=== PATIENT | male | born 1955 | race Caucasian/White ===

== ENCOUNTER → 2019-08-24 | Outpatient (CLI) | payer MEDICARE ==
[2019-08-24 11:55] VITALS: BP 110/75; PULSE 69; RESP 16
--- NOTE | 2019-08-25 13:11 | P.PAINCN ---
History of Present Illness - Reason for Consult Consult date: 08/24/19 - History of Present Illness This is a 64-year-old patient referred by Dr. Moss with a chief complaint of chronic pain in bilateral low back with radiation to bilateral buttocks, left greater than right. Patient used to follow in our clinic, last seen in October 2015, at which time he underwent lumbar radiofrequency ablation of L3, L4, L5 medial branchesbilaterally. He reports that these procedures provided him excellent long-lasting relief. Today, his pain is primarily located in the middle of his low back, he describes intermittent jolts of pain through his back, pain is rated a 6/10, described as sharp, constant, sore. Pain is better with position, heat, massage and worse with bending, activity. Patient reports that this pain is the same pain as prior to his ablation done 3 years ago. He was evaluated by a neurosurgeon, who recommended a Cage, however patient does not want to proceed with this procedure. He would like to have a repeat lumbar radiofrequency ablation, given excellent benefits from prior procedure. Patient has been taking medications from primary care physician including [place] 7.5/325 twice a day when necessary with some relief. Patient denies adverse drug effects from medications. Patient also denies new-onset weakness, bowel/bladder incontinence, or any other signs or symptoms of cauda equina syndrome. There are no signs of acute intoxication, and no indications of medication diversion or overuse. of note, he has chronic lymphoid leukemia, in remission. Patient HAS had injections previously. Patient HAS NOT had physical therapy recently. In addition to above, 13-point review of systems is also negative for chest pain, shortness of breath, changes in vision, changes in hearing, new onset weakness, abdominal pain, diarrhea, extreme fatigue, malaise, fever, skin changes, homicidal or suicidal ideation, or bowel or bladder incontinence. Past Medical History Past Medical History: Cancer, GERD/Reflux, Hypertension Additional Past Medical History / Comment(s): Back Pain, LEFT WRIST PAIN , CHRONIC LYMPHOMA LEUKEMIA History of Any Multi-Drug Resistant Organisms: None Reported Past Surgical History: Orthopedic Surgery Additional Past Surgical History / Comment(s): Lt knee ARTHROSCOPIC ; SEVERAL PAIN PROCEDURES. Past Anesthesia/Blood Transfusion Reactions: No Reported Reaction Smoking Status: Former smoker - Past Family History Mother Family Medical History: No Reported History Additional Family Medical History / Comment(s): BRAIN TUMOR - NO CANCER Medications and Allergies Home Medications Medication Instructions Recorded Confirmed Type Cyclobenzaprine [Flexeril] 10 mg PO HS 07/18/15 08/24/19 History Hydrocodone/Acetaminophen [[place] 1 tab PO BID PRN 08/02/15 08/24/19 History 7.5-325] Lisinopril-Hctz 20-25 mg 1 tab PO QAM 08/02/15 08/17/19 History [Zestoretic 20-25] Metoprolol Succinate [Toprol XL] 25 mg PO BID 08/02/15 08/17/19 History Naproxen 500 mg PO Q12HR PRN 08/02/15 08/17/19 History Omeprazole 40 mg PO AC-BRKFST 08/02/15 08/17/19 History amLODIPine [Norvasc] 5 mg PO QAM 08/02/15 08/17/19 History traZODone HCL [Desyrel] 50 mg PO HS 08/03/15 08/24/19 History Cholecalciferol [Vitamin D3] 2,000 unit PO DAILY 09/30/15 08/17/19 History Atorvastatin [Lipitor] 20 mg PO HS 08/17/19 08/17/19 History [place]-3 Acid Ethyl Esters [Lovaza] 4 gm PO DAILY 08/17/19 08/17/19 History ALPRAZolam [Xanax] 0.5 mg PO DAILY PRN 08/24/19 08/24/19 History Allopurinol [Zyloprim] 300 mg PO DAILY 08/24/19 08/24/19 History Allergies Allergy/AdvReac Type Severity Reaction Status Date / Time No Known Allergies Allergy Verified 08/17/19 14:47 Physical Exam Physical exam: Vital Signs: Blood pressure 110/75, pulse 69, saturation 96% on room air, BMI 28.7 GENERAL: Well appearing, in no acute distress PSYCH: Mood and affect is appropriate. Awake, alert, and oriented SKIN: Skin color, texture, turgor normal, no rashes or lesions HEENT: Normocephalic, atraumatic. EOM intact CV: No pedal edema RESP: Respirations are unlabored, no audible wheezing GI: Abdomen non-distended MUSCULOSKELETAL: Bilateral lower extremity strength is normal and symmetric. No atrophy or tone abnormalities are noted. Lumbar spine: Straight leg raising in the sitting position is negative for radicular pain. tenderness to palpation over the lumbar spine and paraspinous muscles bilaterally, left greater than right.Positive for pain with facet loading and back extension/rotation. pain limited flexion and extension of lumbar spine No pain to palpation over the PSIS, Yady test negative Extremities: Peripheral joint ROM is full and pain free without obvious instability or laxity in all four extremities. No edema or skin discolorations noted. Gait: Gait is normal NEUR: Bilateral lower extremity coordination and muscle stretch reflexes are physiologic and symmetric. Negative clonus. No loss of sensation is noted. Cranial nerves are grossly intact. Results Results: Imaging: MRI of the lumbar spine 08/21/2019= Multilevel lumbar degenerative disc disease and lumbar facet arthropathy, at L3-4 and L4-5 left-sided disc bulges with lateral recess and neuroforaminal narrowing on the left side. presence of renal cysts Assessment and Plan Assessment: Assessment: 1. Lumbar spondylosis without radiculopathy or myelopathy 2. lumbar degenerative disc disease 3. chronic lymphoid leukemia in remission Plan: Plan: 1. Explanation: Opioid and psychological risk scores were reviewed. Diagnoses, prognoses, and multiple treatment options including but not limited to physical therapy, interventional therapies, adjuvant medical therapies, narcotic medication therapies, and surgery were discussed with the patient and all questions were answered to the patient's satisfaction. 2. Opioid agreement: none 3. Counseling: The patient was counseled for 3 minutes on SMOKING CESSATION. he was also counseled on the importance of EXERCISE. Specifically, the patient was instructed regarding the importance of smoking cessation,and exercise in the context of both chronic pain and overall health. 4. Procedures: we will schedule lumbar radiofrequency ablation at L3, L4, L5 we will start with the left side. 5. Consultations: none today, in the future he may benefit from a physical therapy referral 6. Investigations: MRI lumbar spine reviewed 7. Medications: managed by PCP, patient was counseled on potential dose reduction of narcotics following expected pain relief from lumbar radiofrequency ablation 8. Disposition: for above-mentioned procedure PQRS Measure Charge Sheet Measure #130: Documentation of Current Meds in Medical Chart: Patient's medications documented in chart Measure #226: Tobacco Use: Screen & Cessation Intervention: Pt screened for tobacco use AND intervention given Measure #111: Pneumonia Vaccination: Pneumococcal vaccine administered or previously received Measure #47: Advance Care Plan: Advance care planning discussed & documented, pt chose/unable to give Measure #412: Opioid Treatment Agreement: No documentation of signed opioid treatment agreement Measure #317: Preventitive Care & Scrn High Bld Press & F/U: Normal blood pressure, f/u not required Measure #128: Body Mass Index (BMI) Screening & Follow-up: BMI documented within normal parameters Measure #131: Pain Assessment & Follow-up: Pain positive & plan documented, Follow-up scheduled Measure #431: Unhealthy Alcohol Use Preventative Care & Scrn: Patient not identified as an unhealthy alcohol user PQRS Narrative: Smoking Status Former smoker Pain Intensity [Back] 8 Scale Used Numeric (1 - 10) Hx Alcohol Use (MH) Yes: OCCASIONAL Home Medications: Ambulatory Orders Cyclobenzaprine [Flexeril] 10 mg PO HS 07/18/15 Hydrocodone/Acetaminophen [[place] 7.5-325] 1 tab PO BID PRN 08/02/15 Lisinopril-Hctz 20-25 mg [Zestoretic 20-25] 1 tab PO QAM 08/02/15 Metoprolol Succinate [Toprol XL] 25 mg PO BID 08/02/15 Naproxen 500 mg PO Q12HR PRN 08/02/15 Omeprazole 40 mg PO AC-BRKFST 08/02/15 amLODIPine [Norvasc] 5 mg PO QAM 08/02/15 traZODone HCL [Desyrel] 50 mg PO HS 08/03/15 Cholecalciferol [Vitamin D3] 2,000 unit PO DAILY 09/30/15 Atorvastatin [Lipitor] 20 mg PO HS 08/17/19 [place]-3 Acid Ethyl Esters [Lovaza] 4 gm PO DAILY 08/17/19 ALPRAZolam [Xanax] 0.5 mg PO DAILY PRN 08/24/19 Allopurinol [Zyloprim] 300 mg PO DAILY 08/24/19
== END | disposition home or self-care (01) ==
LOC: PNWHC3 09:53
PROVIDERS: ATTEND Anesthesiology
DX: M51.36 Other intervertebral disc degeneration, lumbar region (principal); M47.816 Spondylosis without myelopathy or radiculopathy, lumbar region; C91.Z1 Other lymphoid leukemia, in remission; I10 Essential (primary) hypertension; Z87.891 Personal history of nicotine dependence; Z79.891 Long term (current) use of opiate analgesic; Z79.1 Long term (current) use of non-steroidal anti-inflammatories (NSAID); Z79.899 Other long term (current) drug therapy
CPT/HCPCS: 99211

== ENCOUNTER 2019-08-31 07:23 | Day surgery (SDC) | payer MEDICARE ==
[2019-08-27 16:01] VITALS: BMI 28.7
[~2019-08-31 07:23] MED LIST: LACTATED RINGERS 1,000 ML IV SCH
[2019-08-31 09:44] VITALS: TEMP 97.8
[2019-08-31] MEDS ORDERED: LIDOCAINE 1% 20 ML VIAL (10MG/ML) FOR IV START INTRADERMA ONE (09:44)
--- NOTE | 2019-08-31 10:58 | P.PCN ---
Date of Procedure: 08/31/19 Procedure(s) Performed: PREOPERATIVE DIAGNOSIS: Lumbar Spondylosis POSTOPERATIVE DIAGNOSIS: Same PROCEDURES: Radiofrequency ablation of the L3, L4, L5 medial branches with fluoroscopic guidance on the left side SURGEON: Teressa Okeefe MD. ANESTHESIA: Lidocaine 1% 5 mL, Moderate sedation with intravenous Versed and fentanyl, sedation time 17 minutes EBL: Minimal Fluoroscopy was used for the procedure and images were saved in the radiology portion of the chart. PROCEDURE INDICATION: The patient with low back pain secondary to lumbar facet arthropathy who had more than 50% relief of pain with previous lumbar radiofrequency ablation PROCEDURE DESCRIPTION / TECHNIQUE: The patient was seen and identified in the preoperative area. Risks, benefits, complications, including but not limited to risk of infection ,bleeding , allergic reactions to the medications and incomplete pain relief , and alternatives were discussed with the patient, the patient agreed to proceed with the procedure and signed the consent. IV was started. The operative site was marked. Patient was taken to the OR and time out was completed. The patient was placed in the prone position on the procedure table. The lumbar area was prepped and draped in the usual sterile fashion. . Vital signs were closely monitored during the procedure .IV sedation was used during the procedure to decrease patients anxiety. Using AP and then oblique fluoroscopy, the "eye of the Tej dog" corresponding to the connection between the superior and transverse articular processes of the left L4 and L5 as well as the sacral ala were identified, marked, and localized with 1% lidocaine. Subsequently, an 18 guage 100 mm radiofrequency cannula with a 10-mm active tip was advanced guided by fluoroscopy to the identified target at each site. Needle positioning was confirmed on AP, oblique and lateral fluoroscopy. Motor testing at 2.5 Hz was done with paraspinal muscle stimulation only, and no radicular symptoms down the legs. Then 1 mL of 4% lidocaine was injected in each site. Radiofrequency thermocoagulation at 80 degrees celsius for 90 seconds was then performed. [place] were removed. Sterile dressings were applied. COMPLICATIONS: No acute complications. DISPOSITION / PLANS: The patient was placed in a supine position and transferred to the recovery area in a stable condition for observation and was discharged from the recovery room after meeting discharge criteria. Home discharge instructions given to the patient by the staff. The patient will follow up for right-sided procedure in 2 weeks.
[2019-08-31] MEDS ORDERED: IV FLUID CONTINUATION 1,000 ML IV ONE (11:03)
--- NOTE | 2019-08-31 11:08 | FL ---
EXAMINATION TYPE: FL guided pain mgmt statistic DATE OF EXAM: 08/31/2019 HISTORY: Flouroscopy time 9 seconds of fluoroscopy provided. IMPRESSION: 1. Fluoroscopy time.
[2019-08-31 11:30] VITALS: BP 104/64; PULSE 67; RESP 17
== END 2019-08-31 11:45 | disposition home or self-care (01) ==
LOC: ORPAIN 07:23
PROVIDERS: ATTEND Anesthesiology
DX: G89.29 Other chronic pain (principal); M47.816 Spondylosis without myelopathy or radiculopathy, lumbar region; M51.36 Other intervertebral disc degeneration, lumbar region; C91.11 Chronic lymphocytic leukemia of B-cell type in remission; I10 Essential (primary) hypertension; K21.9 Gastro-esophageal reflux disease without esophagitis; Z87.891 Personal history of nicotine dependence; Z79.899 Other long term (current) drug therapy; Z80.8 Family history of malignant neoplasm of other organs or systems
CPT/HCPCS: 64635; 64636; J2250; J3010; 99152

== ENCOUNTER 2019-09-28 08:14 | Day surgery (SDC) | payer MEDICARE ==
[2019-09-18 15:17] VITALS: BMI 28.4
[~2019-09-28 08:14] MED LIST changes: +MIDAZOLAM 2 MG/2 ML VIAL ONE; +fentaNYL (PF) 50 MCG/ML 2 ML AMP ONE
[2019-09-28 09:32] VITALS: TEMP 97.8
[2019-09-28] MEDS ORDERED: IV FLUID CONTINUATION 1,000 ML IV ONE (10:01)
[2019-09-28 10:19] VITALS: BP 105/69; PULSE 71; RESP 16
--- NOTE | 2019-09-28 10:20 | FL ---
EXAMINATION TYPE: FL guided pain mgmt statistic DATE OF EXAM: 09/28/2019 HISTORY: Flouroscopy time 7 seconds of fluoroscopy provided. IMPRESSION: 1. Fluoroscopy time.
--- NOTE | 2019-09-28 10:33 | P.PCN ---
Date of Procedure: 09/28/19 Procedure(s) Performed: PREOPERATIVE DIAGNOSIS: Lumbar Spondylosis POSTOPERATIVE DIAGNOSIS: Same PROCEDURES: Radiofrequency ablation of the L3, L4, L5 medial branches with fluoroscopic guidance on the right side SURGEON: Teressa Okeefe MD. ANESTHESIA: Lidocaine 1% 5 mL, Moderate sedation with intravenous Versed and fentanyl, sedation time 20 minutes EBL: Minimal Fluoroscopy was used for the procedure and images were saved in the radiology portion of the chart. PROCEDURE INDICATION: The patient with low back pain secondary to lumbar facet arthropathy who had more than 50% relief of pain with previous diagnostic lumbar medial branch block X2. PROCEDURE DESCRIPTION / TECHNIQUE: The patient was seen and identified in the preoperative area. Risks, benefits, complications, including but not limited to risk of infection ,bleeding , allergic reactions to the medications and incomplete pain relief , and alternatives were discussed with the patient, the patient agreed to proceed with the procedure and signed the consent. IV was started. The operative site was marked. Patient was taken to the OR and time out was completed. The patient was placed in the prone position on the procedure table. The lumbar area was prepped and draped in the usual sterile fashion. . Vital signs were closely monitored during the procedure .IV sedation was used during the procedure to decrease patients anxiety. Using AP and then oblique fluoroscopy, the "eye of the [place] dog" corresponding to the connection between the superior and transverse articular processes of the L4 and L5 as well as the sacral ala were identified, marked, and localized with 1% lidocaine. Subsequently, an 18 guage 100 mm radiofrequency cannula with a 10-mm active tip was advanced guided by fluoroscopy to the identified target at each site. Needle positioning was confirmed on AP, oblique and lateral fluoroscopy. Motor testing at 2.5 Hz was done with paraspinal muscle stimulation only, and no radicular symptoms down the legs. Then 1 mL of 4% lidocaine was injected in each site. Radiofrequency thermocoagulation at 80 degrees celsius for 90 seconds was then performed. [place] were removed. Sterile dressings were applied. COMPLICATIONS: No acute complications. DISPOSITION / PLANS: The patient was placed in a supine position and transferred to the recovery area in a stable condition for observation and was discharged from the recovery room after meeting discharge criteria. Home discharge instructions given to the patient by the staff. The patient will follow up in clinic in 4 weeks.
== END 2019-09-28 10:31 | disposition home or self-care (01) ==
LOC: ORPAIN 08:14
PROVIDERS: ATTEND Anesthesiology
DX: M47.9 Spondylosis, unspecified (principal); Z79.1 Long term (current) use of non-steroidal anti-inflammatories (NSAID)
CPT/HCPCS: 64635; 64636; J2250; J3010; 99152

== ENCOUNTER → 2019-11-04 | Outpatient (CLI) | payer MEDICARE ==
[2019-11-04 14:53] VITALS: BP 109/71; PULSE 81; RESP 18
--- NOTE | 2019-11-05 10:45 | P.PAINPG ---
Subjective Progress Note Date: 11/04/19 Principal diagnosis: This is a follow-up visit for this 64 years old male with a history of chronic low back pain he is diagnosed with lumbar spondylosis with lumbar facet arthropathy, status post radiofrequency thermocoagulation of the medial branch lumbar area, L3/L4/L5, bilaterally, patient reported that his pain improved significantly, he continued to have minimal pain, and he uses for that [place] when necessary, to get prescription refills from his primary care he reported that his pain improved almost 90% after the radiofrequency, he denies any motor or sensory deficit he denies any fever or night sweats and he is very satisfied with the result of the treatment Objective - Vital Signs Vital signs: Vital Signs Temp Pulse 81 11/04/19 14:45 Resp 18 11/04/19 14:45 BP 109/71 11/04/19 14:45 Pulse Ox 94 L 11/04/19 14:45 - Exam Physical Examinations : -Constitutiona : Cooperative , not in acute distress . -HEENT : nech : supple , no Lymphadenopathy , normal thyroid size . - neurologic : Cranial nerve II to XII intact , no focal neurological deffecit . -psychatric : alert , oriented X 3 , appropriate affect , intact judgment and insight . -Lymphatic : no Lymphadenopathy . - musculoskeltal : Lumber spine moter stegnth lower extremities ,thigh and legs 5/5 Right side , 5/5 Left side Assessment and Plan Plan: Assessment and plan= chronic low back pain secondary to lumbar spondylosis with lumbar facet arthropathy without myelopathy Patient doing very well after radiofrequency thermocoagulation of the median branch lumbar area. He will follow up in the pain clinic when necessary, patient would continue to use [place] 7.5/325 when necessary as prescribed by his primary care Time with Patient: Less than 30 PQRS Measure Charge Sheet Measure #130: Documentation of Current Meds in Medical Chart: Patient's medications documented in chart Measure #226: Tobacco Use: Screen & Cessation Intervention: Pt not a tobacco user Measure #111: Pneumonia Vaccination: Pneumococcal vaccine administered or previously received Measure #47: Advance Care Plan: Advance care planning discussed & documented, pt chose/unable to give Measure #412: Opioid Treatment Agreement: No documentation of signed opioid treatment agreement Measure #408: Opioid Therapy Follow-up Evaluation: Patient had NO f/u eval minimum every 3 months during opioid therapy Measure #317: Preventitive Care & Scrn High Bld Press & F/U: Normal blood pressure, f/u not required Measure #128: Body Mass Index (BMI) Screening & Follow-up: BMI documented ABOVE normal parameters - f/u documented Measure #131: Pain Assessment & Follow-up: Pain positive & plan documented, Follow-up PRN Measure #431: Unhealthy Alcohol Use Preventative Care & Scrn: Patient not identified as an unhealthy alcohol user PQRS Narrative: Smoking Status Former smoker Blood Pressure 109/71 Pain Intensity [None] 0 Scale Used Numeric (1 - 10) Hx Alcohol Use (MH) Yes: OCCASIONAL Home Medications: Ambulatory Orders Cyclobenzaprine [Flexeril] 10 mg PO HS 07/18/15 Hydrocodone/Acetaminophen [[place] 7.5-325] 1 tab PO BID PRN 08/02/15 Lisinopril-Hctz 20-25 mg [Zestoretic 20-25] 1 tab PO QAM 08/02/15 Metoprolol Succinate [Toprol XL] 25 mg PO BID 08/02/15 Omeprazole 40 mg PO AC-BRKFST 08/02/15 amLODIPine [Norvasc] 5 mg PO QAM 08/02/15 traZODone HCL [Desyrel] 50 mg PO HS 08/03/15 Cholecalciferol [Vitamin D3] 2,000 unit PO DAILY 09/30/15 Atorvastatin [Lipitor] 20 mg PO HS 08/17/19 [place]-3 Acid Ethyl Esters [Lovaza] 4 gm PO DAILY 08/17/19 ALPRAZolam [Xanax] 0.5 mg PO DAILY PRN 08/24/19 Allopurinol [Zyloprim] 300 mg PO DAILY 08/24/19 Controlled Substance Measures - Controlled Substance Measures Is patient prescribed a controlled substance at discharge?: No
== END | disposition home or self-care (01) ==
LOC: PNWHC3 14:08
PROVIDERS: ATTEND Specialist
DX: G89.29 Other chronic pain (principal); M47.816 Spondylosis without myelopathy or radiculopathy, lumbar region; M46.96 Unspecified inflammatory spondylopathy, lumbar region; Z98.890 Other specified postprocedural states; Z87.891 Personal history of nicotine dependence; Z79.899 Other long term (current) drug therapy
CPT/HCPCS: 99211

== ENCOUNTER → 2023-12-09 | Outpatient (CLI) | payer MEDICARE ==
--- NOTE | 2023-12-09 14:58 | XR ---
EXAM TYPE: LUMBAR SPINE X RAY SERIES COMPARISON: NONE HISTORY: Pain TECHNIQUE: 4 views are submitted. FINDINGS: There is multilevel mild degenerative disc disease with moderate to severe changes L4-5. There is a f acet arthropathy at levels L3-S1 with grade 1 anterolisthesis L5-S1. Suspect foraminal encroachment L 4-5 and L5-S1. Mild diffuse osteopenia. IMPRESSION: 1. Multilevel degenerative disc disease most marked at L4-5 with facet arthropathy. 2. Multilevel foraminal encroachment at L4-5 and L5-S1. 3. Grade 1 anterior listhesis L5-S1 likely is degenerative.
== END | disposition home or self-care (01) ==
LOC: RADXRMAIN 14:42
PROVIDERS: ATTEND Physician Assistant Medical
DX: M51.36 Other intervertebral disc degeneration, lumbar region (principal); M43.17 Spondylolisthesis, lumbosacral region; M47.816 Spondylosis without myelopathy or radiculopathy, lumbar region
CPT/HCPCS: 72100

== ENCOUNTER → 2023-12-09 | Outpatient (CLI) | payer MEDICARE ==
[2023-12-09 15:46] VITALS: BP 116/75; PULSE 60; RESP 16; TEMP 98.2
--- NOTE | 2023-12-11 14:35 | P.PAINPG ---
PQRS Measure Charge Sheet Comment: HISTORY OF PRESENT ILLNESS: A 68 yr old male w at side as a referral from Dr Moss presents today w severe and chronic LBP x 1 yr secondary to DDD, spondylosis and facet arthropathy without myelopathy for evaluation. Pt states pain level is provoked at 6 /10 in intensity, constant, localized in the lower lumbar spine, predominantly axial, sharp in character w occasional shooting pain up towards the spine. Pain is provoked by bending. Pain is alleviated by PT x 6 wks in Fall 2021, physician guided home exercise regimen daily since Fall 2021, massage therapy years ago, heat, medications (Fish Oil), Voltaren gel topical, repositioning and rest. Pt has lost 40 lbs over the last few years due to physical activity. Oswestry axial pain score at 26. PMH: OA, CLL, GERD, HTN, Vitamin D Deficiency, MD PSH: BL RFA L2-L5 (2015, 2019), L Knee Arthroscopy, Benign Brain Tumor SH: Former tobacco user, No ETOH abuse, No illicit drug use FH: No Reported History All: See list Meds: See list REVIEW OF ORGAN SYSTEMS: CONSTITUTIONAL: No fevers or chills. No recent weight loss. NEUROLOGICAL: + numbness and tingling along the distal extremities. No seizure disorders or headaches. MUSCULOSKELETAL: + pain PSYCHIATRIC: Denies current depression or suicidal thoughts. Physical Examinations : Constitutional : Cooperative , not in acute distress . Neurologic : Cranial nerve II to XII intact. No focal neurological deficits. Psychiatric : alert & oriented x 3. Matching mood & appropriate affect. Judgment & insight intact. Musculoskeletal : Cervical Spine Motor strength in the deltoid and biceps: Normal right side. Normal Left side Motor strength biceps and the wrist extensors: Normal right side . Normal left side Motor strength in the triceps muscle: Normal right side. Normal left side Deep tendon reflexes: Normal at the biceps. Normal at Brachioradialis. Normal at triceps Vertebral body tenderness to deep palpation over Cervical facet loading test: positive bilaterally Spurling test: positive bilaterally Neck distraction test: positive bilaterally [place]hela sign: positive bilaterally Lumbar spine Motor strength lower extremities ,thigh and legs 5/5 Right side , 5/5 Left side Deep tendon reflexes : Normal Knee Jerk. Normal Ankle Jerk Vertebral body tenderness over [place] Test positive Lumbar facet Loading Test: positive Right / positive Left L3-L4, L4-L5, L5-S1 Range of motion of the lumbar spine Flexion 30 degrees, extension 10 degrees Straight Leg Raise test: Left/ Right positive at degree Yady test: positive right / positive left. Severe tenderness over the Sacroiliac joint on the Right / Left sides [place] test: positive bilaterally Seated flexion test: positive bilaterally. Sacral spine : Severe tenderness over the Sacroiliac joint: right side / left side Range of motion: Flexion of the lumbar spine <60 degrees Range of motion: Extension of the lumbar spine <20 degrees Gaenslen's Test positive Yady test: positive right side / left side Thigh Thrust Test Sacral Thrust Test Imaging: MRI noncontrast of the lumbar spine from 07/01/2015 reviewed Assessment/ Plan : Lumbar DDD Recommendation of lumbar x ray M51.36 May need additional testing if indicated. All questions answered. I have spent greater than 30 minutes on patient care today. Dr Gómez was available by phone for the evaluation of this patient. The time was used to review the medical records including relevant urine studies and Prescription history (MAPs), review of the available imaging, evaluation and examination of the patient, coordination of care with the medical staff and if applicable referring physicians, as well as creation of the medical record PQRS Narrative: Smoking Status Former smoker Hx Alcohol Use (MH) Yes: OCCASIONAL Home Medications: Ambulatory Orders Cyclobenzaprine [Flexeril] 10 mg PO HS 07/18/15 Hydrocodone/Acetaminophen [[place] 7.5-325] 1 tab PO BID PRN 08/02/15 Lisinopril-Hctz 20-25 mg [Zestoretic 20-25] 1 tab PO QAM 08/02/15 Metoprolol Succinate [Toprol XL] 25 mg PO BID 08/02/15 Omeprazole 40 mg PO AC-BRKFST 08/02/15 amLODIPine [Norvasc] 5 mg PO QAM 08/02/15 traZODone HCL [Desyrel] 50 mg PO HS 08/03/15 Cholecalciferol [Vitamin D3] 2,000 unit PO DAILY 09/30/15 Atorvastatin [Lipitor] 20 mg PO HS 08/17/19 [place]-3 Acid Ethyl Esters [Lovaza] 4 gm PO DAILY 08/17/19 ALPRAZolam [Xanax] 0.5 mg PO DAILY PRN 08/24/19 allopurinoL [Zyloprim] 300 mg PO DAILY 08/24/19 Controlled Substance Measures - Controlled Substance Measures Is patient prescribed a controlled substance at discharge?: No
== END ==
LOC: PNWHC3 11:53
PROVIDERS: ATTEND Specialist
DX: M51.36 Other intervertebral disc degeneration, lumbar region (principal); Z87.891 Personal history of nicotine dependence
CPT/HCPCS: 99211

== ENCOUNTER → 2023-12-25 | Outpatient (CLI) | payer MEDICARE ==
[2023-12-25 11:55] VITALS: BP 132/72; PULSE 72; RESP 15; TEMP 98.3
--- NOTE | 2023-12-25 14:26 | P.PAINPG ---
PQRS Measure Charge Sheet Comment: HISTORY OF PRESENT ILLNESS: A 68 yr old male w at side presents today w severe and chronic LBP x 1 yr secondary to DDD, spondylosis and facet arthropathy without myelopathy for evaluation. Pt underwent a BL RFA of the L2-L5 in Aug 2019- Sep 2019 where he experienced 95% pain relief x 3 1/2 yrs s/p procedure. Pt states pain level is provoked at 6 /10 in intensity, constant, localized in the lower lumbar spine, predominantly axial, sharp in character w occasional shooting pain up towards the spine. Pain is provoked by bending. Pain is alleviated by PT x 6 wks in Fall 2021, physician guided home exercise regimen daily since Fall 2021, massage therapy years ago, heat, medications, topical, repositioning and rest. Pt has lost 40 lbs over the last few years due to physical activity. Oswestry axial pain score at 26. Interventional procedures include BL RFA L2-L5 Medications include Voltaren gel, Fish Oil REVIEW OF ORGAN SYSTEMS: CONSTITUTIONAL: No fevers or chills. No recent weight loss. NEUROLOGICAL: + numbness and tingling along the distal extremities. No seizure disorders or headaches. MUSCULOSKELETAL: + pain PSYCHIATRIC: Denies current depression or suicidal thoughts. Physical Examinations : Constitutional : Cooperative , not in acute distress . Neurologic : Cranial nerve II to XII intact. No focal neurological deficits. Psychiatric : alert & oriented x 3. Matching mood & appropriate affect. Judgment & insight intact. Musculoskeletal : Cervical Spine Motor strength in the deltoid and biceps: Normal right side. Normal Left side Motor strength biceps and the wrist extensors: Normal right side . Normal left side Motor strength in the triceps muscle: Normal right side. Normal left side Deep tendon reflexes: Normal at the biceps. Normal at Brachioradialis. Normal at triceps Vertebral body tenderness to deep palpation over Cervical facet loading test: positive bilaterally Spurling test: positive bilaterally Neck distraction test: positive bilaterally Esthela sign: positive bilaterally Lumbar spine Motor strength lower extremities ,thigh and legs 5/5 Right side , 5/5 Left side Deep tendon reflexes : Normal Knee Jerk. Normal Ankle Jerk Vertebral body tenderness over Lake Test positive Lumbar facet Loading Test: positive Right / positive Left L3-L4, L4-L5, L5-S1 Range of motion of the lumbar spine Flexion 30 degrees, extension 10 degrees Straight Leg Raise test: Left/ Right positive at degree Yady test: positive right / positive left. Severe tenderness over the Sacroiliac joint on the Right / Left sides Gaenslen test: positive bilaterally Seated flexion test: positive bilaterally. Sacral spine : Severe tenderness over the Sacroiliac joint: right side / left side Range of motion: Flexion of the lumbar spine <60 degrees Range of motion: Extension of the lumbar spine <20 degrees Gaenslen's Test positive Yady test: positive right side / left side Thigh Thrust Test Sacral Thrust Test Imaging: MRI noncontrast of the lumbar spine from 07/01/2015 reviewed Lumbar x ray of the lumbar spine from 12/09/23 reviewed Awaiting updated MRI of the lumbar spine Assessment/ Plan : Lumbar DDD Recommendation of BL RFA L2-L5. Pt exhibited substantial pain relief w prior BL RFA of the lumbar spine. Risks, benefits of procedure discussed and pt verbalized understanding. Minimal anesthesia including Versed and Fentanyl if clinically indicated. Protocol for discontinuation/ continuation of medications harpreet procedure discussed. All questions answered. I have spent greater than 30 minutes on patient care today. Dr Gómez was available by phone for the evaluation of this patient. The time was used to review the medical records including relevant urine studies and Prescription h istory (MAPs), review of the available imaging, evaluation and examination of the patient, coordination of care with the medical staff and if applicable referring physicians, as well as creation of the medical record - Pain Location Bilateral Lower Back Non-Pharmacological Interventions: Heat, Inactivity, Position/Reposition Pharmacological Interventions: Scheduled Medication PQRS Narrative: Smoking Status Former smoker Hx Alcohol Use (MH) Yes: OCCASIONAL Home Medications: Ambulatory Orders Cyclobenzaprine [Flexeril] 10 mg PO HS 07/18/15 Hydrocodone/Acetaminophen [[place] 7.5-325] 1 tab PO BID PRN 08/02/15 Lisinopril-Hctz 20-25 mg [Zestoretic 20-25] 1 tab PO QAM 08/02/15 Metoprolol Succinate [Toprol XL] 25 mg PO BID 08/02/15 Omeprazole 40 mg PO AC-BRKFST 08/02/15 amLODIPine [Norvasc] 5 mg PO QAM 08/02/15 traZODone HCL [Desyrel] 50 mg PO HS 08/03/15 Cholecalciferol [Vitamin D3] 2,000 unit PO DAILY 09/30/15 Atorvastatin [Lipitor] 20 mg PO HS 08/17/19 [place]-3 Acid Ethyl Esters [Lovaza] 4 gm PO DAILY 08/17/19 ALPRAZolam [Xanax] 0.5 mg PO DAILY PRN 08/24/19 allopurinoL [Zyloprim] 300 mg PO DAILY 08/24/19 Controlled Substance Measures - Controlled Substance Measures Is patient prescribed a controlled substance at discharge?: No
== END ==
LOC: PNWHC3 10:07
PROVIDERS: ATTEND Specialist
DX: M51.37 Other intervertebral disc degeneration, lumbosacral region (principal); M47.817 Spondylosis without myelopathy or radiculopathy, lumbosacral region; G89.29 Other chronic pain; Z87.891 Personal history of nicotine dependence
CPT/HCPCS: 99211

== ENCOUNTER → 2024-01-09 | Day surgery (SDC) | payer MEDICARE ==
[~2024-01-09] MED LIST changes: -LACTATED RINGERS 1,000 ML IV SCH; +ROPIVACAINE 5MG/ML 20ML VIAL ONE; +methylPREDNISolone ACETATE 80 MG/ML 1 ML VIAL ONE
[2024-01-09] MEDS: LACTATED RINGERS 1,000 ML IV SCH (10:47)
[2024-01-09 11:25] VITALS: TEMP 97.3
--- NOTE | 2024-01-09 12:35 | P.PCN ---
Date of Procedure: 01/09/24 Procedure(s) Performed: PREOPERATIVE DIAGNOSIS: 1-Lumbar Spondylosis with Facet Arthropathy without myelopathy. 2- Lumber degenerative disc disease. POSTOPERATIVE DIAGNOSIS: 1- Lumbar Spondylosis with Facet Arthropathy without myelopathy. 2- Lumber degenerative disc disease. PROCEDURES :Bilateral Radiofrequency thermocoagulation, L3 , L4 ,L5 medial branch, with fluoroscopic guidance (fluoro images in the radiology department) ( to denervate the facet joint at bilateral L4-5 , L5-S1 levels ). ANESTHESIA: Moderate sedation with intravenous versed 2 mg and fentaneyl 100 mcg, and local infiltration with Ropivacaine 0.5 % . ( Sedation start 12:04, ended at 12:32) EBL: Minimal PROCEDURE INDICATION: The patient with low back pain secondary to lumbar facet arthropathy who had more than 50% relief of her pain with previous diagnostic lumbar medial branch block with bupivacaine. PROCEDURE DESCRIPTION / TECHNIQUE: The patient was seen and identified in the preoperative area. Risks, benefits, complications, including but not limited to risk of infection ,bleeding , allergic reactions to the medications and no complete pain releife , and alternatives were discussed with the patient, the patient agreed to proceed with the procedure and signed the consent. IV was started. Vital signs remained stable throughout the procedure. Patient was taken to the OR and time out was completed. The patient was placed in the prone position on the procedure table. The lumber area was prepped and draped in the usual sterile fashion. . Vital signs were closely monitored during the procedure .IV sedation was used during the procedure to decrease patients anxiety. Using AP and then oblique fluoroscopy, the ``eye of the Tej dog corresponding to the connection between the superior and transverse articular processes of right L3, L4, and L5 were identified, marked, and localized with 1% lidocaine. Subsequently, a 18 [id number] radiofrequency cannula with a 10- mm active tip was advanced guided by fluoroscopy to each of the``eyes of the Tej dog at right L3, L4, and L5. Each site then underwent sensory testing at 50 Hz and 0 to 1 volt and motor testing at 2.5 Hz and 0 to 3 volt with local stimulation, but no radicular symptoms down the legs. Thereafter each sites underwent radiofrequency thermocoagulation at 80 degrees celsius for 90 seconds after injecting 0.5 ml of PF Ropivacaine 1ml, then after the th ermocoagulation done , 1 ml of the block solution containing Depo-Medrol 30 mg and 3 ml of Ropivacaine 0.5% was injected at the right L3 , L4 , and L5 , levels after negative aspiration of CSF and blood and with no paresthesias. Cannulas were retracted while injecting lidocaine 1% until the needle is out. The same procedure was repeated at the level of Left L3, L4, and L5 levels. At the end of the procedure, the skin was cleansed and bandages were applied. COMPLICATIONS: No acute complications. DISPOSITION / PLANS: The patient was placed in a supine position and transferred to the recovery area in a stable condition for observation and was discharged from the recovery room after meeting discharge criteria. Home discharge instructions given to the patient by the staff. The patient was reexamined prior to discharge. The patient will schedule a follow up in the clinic in 2-4 weeks.
[2024-01-09] MEDS: LACTATED RINGERS 1,000 ML IV ONE (12:40)
[2024-01-09 12:56] VITALS: RESP 18
--- NOTE | 2024-01-09 13:30 | FL ---
EXAMINATION TYPE: FL guided pain mgmt statistic Intraoperative/procedural fluoroscopic services were provided. Total fluoroscopy time is 24.4 seconds with a total of 6 submitted images to PACS. Please s ee the operative/procedural note for further details. DAP: 0.10129 mGym2
[2024-01-09 13:40] VITALS: BP 101/64; PULSE 72
== END ==
LOC: ORPAIN 10:17
PROVIDERS: ATTEND Specialist
DX: M51.36 Other intervertebral disc degeneration, lumbar region (principal); M47.816 Spondylosis without myelopathy or radiculopathy, lumbar region
CPT/HCPCS: 64635; 64636 ×2; 99152; 99153; J2250; J3010; J2795; J1010

== ENCOUNTER → 2024-02-20 | Outpatient (CLI) | payer MEDICARE ==
[2024-02-20 14:51] VITALS: BP 134/82; PULSE 82; RESP 15; TEMP 98.4
--- NOTE | 2024-02-20 14:52 | P.PAINPG ---
Objective - Vital Signs Vital signs: Intake & Output 02/19/24 02/20/24 02/20/24 18:59 06:59 18:59 Weight 76.204 kg PQRS Measure Charge Sheet Comment: HISTORY OF PRESENT ILLNESS: A 69 yr old male w at side presents today w severe and chronic LBP x 1 yr secondary to DDD, spondylosis and facet arthropathy without myelopathy for evaluation s/p BL RFA of the L3-L5. Pt states he experienced 70% pain relief s/p procedure. Pt states pain level is provoked at 6 /10 in intensity, constant, localized in the lower lumbar spine, predominantly axial, sharp in character w occasional shooting pain up towards the spine. Pain is provoked by bending. Pain is alleviated by PT x 6 wks in Fall 2021, physician guided home exercise regimen daily since Fall 2021, massage therapy years ago, heat, medications, topical, repositioning and rest. Pt has lost 40 lbs over the last few years due to physical activity. Oswestry axial pain score at 24. Interventional procedures include BL RFA L2-L5, BL RFA L3-L5 (Dec 2023) Medications include Voltaren gel, Fish Oil REVIEW OF ORGAN SYSTEMS: CONSTITUTIONAL: No fevers or chills. No recent weight loss. NEUROLOGICAL: + numbness and tingling along the distal extremities. No seizure disorders or headaches. MUSCULOSKELETAL: + pain PSYCHIATRIC: Denies current depression or suicidal thoughts. Physical Examinations : Constitutional : Cooperative , not in acute distress . Neurologic : Cranial nerve II to XII intact. No focal neurological deficits. Psychiatric : alert & oriented x 3. Matching mood & appropriate affect. Judgment & insight intact. Musculoskeletal : Cervical Spine Motor strength in the deltoid and biceps: Normal right side. Normal Left side Motor strength biceps and the wrist extensors: Normal right side . Normal left side Motor strength in the triceps muscle: Normal right side. Normal left side Deep tendon reflexes: Normal at the biceps. Normal at Brachioradialis. Normal at triceps Vertebral body tenderness to deep palpation over Cervical facet loading test: positive bilaterally Spurling test: positive bilaterally Neck distraction test: positive bilaterally Esthela sign: positive bilaterally Lumbar spine Motor strength lower extremities ,thigh and legs 5/5 Right side , 5/5 Left side Deep tendon reflexes : Normal Knee Jerk. Normal Ankle Jerk Vertebral body tenderness over [place] Test positive Lumbar facet Loading Test: positive Right / positive Left L2-L3, L3-L4 Range of motion of the lumbar spine Flexion 30 degrees, extension 10 degrees Straight Leg Raise test: Left/ Right positive at degree Yady test: positive right / positive left. Severe tenderness over the Sacroiliac joint on the Right / Left sides Gaenslen test: positive bilaterally Seated flexion test: positive bilaterally. Sacral spine : Severe tenderness over the Sacroiliac joint: right side / left side Range of motion: Flexion of the lumbar spine <60 degrees Range of motion: Extension of the lumbar spine <20 degrees Gaenslen's Test positive Yady test: positive right side / left side Thigh Thrust Test Sacral Thrust Test Imaging: MRI noncontrast of the lumbar spine from 07/01/2015 reviewed Lumbar x ray of the lumbar spine from 12/09/23 reviewed MRI non contrast of the lumbar spine from 12/19/23 reviewed. Assessment/ Plan : Lumbar DDD Recommendation of BL MBB L2-L3, L3-L4 #1. May need a series of injections, up until RFA, for optimal pain relief. Risks, benefits of procedure discussed and pt verbalized understanding. Minimal anesthesia including Versed and Fentanyl if clinically indicated. Protocol for discontinuation/ continuation of medications harrpeet procedure discussed. All questions answered. I have spent greater than 30 minutes on patient care today. Dr Gómez was available by phone for the evaluation of this patient. The time was used to review the medical records including relevant urine studies and Prescription history (MAPs), review of the available imaging, evaluation and examination of the patient, coordination of care with the medical staff and if applicable referring physicians, as well as creation of the medical record PQRS Narrative: Smoking Status Former smoker Hx Alcohol Use (MH) Yes: OCCASIONAL Home Medications: Ambulatory Orders Cyclobenzaprine [Flexeril] 10 mg PO HS 07/18/15 Hydrocodone/Acetaminophen [[place] 7.5-325] 1 tab PO BID PRN 08/02/15 Lisinopril-Hctz 20-25 mg [Zestoretic 20-25] 1 tab PO QAM 08/02/15 Metoprolol Succinate [Toprol XL] 25 mg PO BID 08/02/15 Omeprazole 40 mg PO AC-BRKFST 08/02/15 amLODIPine [Norvasc] 5 mg PO QAM 08/02/15 traZODone HCL [Desyrel] 50 mg PO HS 08/03/15 Cholecalciferol [Vitamin D3] 2,000 unit PO DAILY 09/30/15 Atorvastatin [Lipitor] 20 mg PO HS 08/17/19 [place]-3 Acid Ethyl Esters [Lovaza] 4 gm PO DAILY 08/17/19 ALPRAZolam [Xanax] 0.5 mg PO DAILY PRN 08/24/19 allopurinoL [Zyloprim] 300 mg PO DAILY 08/24/19 Unk Tumeric 1 tab PO DAILY 01/07/24 Controlled Substance Measures - Controlled Substance Measures Is patient prescribed a controlled substance at discharge?: No
== END ==
LOC: PNWHC3 12:37
PROVIDERS: ATTEND Specialist
DX: M51.36 Other intervertebral disc degeneration, lumbar region (principal); Z87.891 Personal history of nicotine dependence
CPT/HCPCS: 99211

== ENCOUNTER 2024-03-13 07:23 | Day surgery (SDC) | payer MEDICARE ==
[2024-03-13 08:13] VITALS: TEMP 97.6
[2024-03-13] MEDS: IV FLUID CONTINUATION 1,000 ML IV ONE ×2 (08:17→10:10)
[2024-03-13] MEDS: LACTATED RINGERS 1,000 ML IV SCH (08:18)
[2024-03-13] MEDS ORDERED: MIDAZOLAM 2 MG/2 ML VIAL ONE (09:10)
[2024-03-13] MEDS ORDERED: fentaNYL (PF) 50 MCG/ML 2 ML AMP ONE (09:10)
[2024-03-13] MEDS ORDERED: ROPIVACAINE 5MG/ML 20ML VIAL ONE (09:10)
--- NOTE | 2024-03-13 09:25 | P.PCN ---
Date of Procedure: 03/13/24 Procedure(s) Performed: PREOPERATIVE DIAGNOSIS : 1- Lumbar spondylosis with Facet Arthropathy without myelopathy . 2- Lumber degenerative disc disease POSTOPERATIVE DIAGNOSIS: 1- Lumbar spondylosis with Facet Arthropathy without myelopathy . 2- Lumber degenerative disc disease PROCEDURE: Diagnostic bilateral L1 , L2 , and L3 medial branch block under fluoroscopy guidance(fluoroscopy images available in the radiology Department ) ( To target the facet joint between Bilateral L2-3 , and L3- 4)# 1St ANESTHESIA: moderate sedation with intravenous Versed 2 mg and Fentanyl 100 mcg.( sedations started at 09:10 ,ended at 09:20 ) EBL: Minimal COMPLICATION: None PROCEDURE INDICATION: Chronic low back pain secondary to Facet arthropathy unresponsive to conservative treatment. PROCEDURE DESCRIPTION: the patient was seen and identified in the preop holding area , risks and benefits and possible complications of the procedure and alternative were discussed with the patient, and the patient agreed to proceed with the procedure and signed the consent and vital signs monitored during the procedure and fluoroscopy was used to maximize the benefit and accuracy of the needle placement, and sedation was given to decrease patient anxiety, patient was taken to the procedure room and placed in prone position vital signs monitored in the back prepped with chlorhexidine X3 then under strict sterile technique using a right oblique fluoroscopy ,the junction of the transverse process and the superior articulating process of the right L1 , L2 , and L3 vertebra which corresponding to the fluoroscopy image of the eye of the Tej dog on the block side for the medial branches and subsequently , after local infiltration of skin and subcu tissuies with Ropivacaine 0.5 % , one mL at each level ,then 22-gauge Quincke-type needles , 3 needle was used , each one of them placed at the junction of the base of the transverse process and the superior articular process at the appropriate level, and the needle was advanced until the periosteum contacted, needle placement confirmed with AP oblique and lateral view and after appropriate needle placement confirmed, and after negative aspiration for heme and CSF and there was no paresthesia 1-1/2 mL of Ropivacaine 0.5% , then half mL injected at each level after negative aspiration the needle subsequently removed and the same procedure repeated for the left side at left side at L1 , L2 and L 3levels. At the end of the procedure and the needles removed and a bandage applied after the skin was cleaned the cleaning solution patient taken to recovery room in stable condition and monitors in the recovery room for 20-30 minutes and discharged home in stable condition after discharge criteria met and patient will follow up with the pain clinic in 2-4 weeks
[2024-03-13 10:22] VITALS: BP 104/60; PULSE 67; RESP 16
--- NOTE | 2024-03-13 11:40 | FL ---
EXAMINATION TYPE: FL guided pain mgmt statistic Intraoperative/procedural fluoroscopic services were provided. 11 sec fluoro. .[id number] DAP. 4 images saved.
== END 2024-03-13 10:23 | disposition home or self-care (01) ==
LOC: ORPAIN 07:23
PROVIDERS: ATTEND Specialist
DX: M47.816 Spondylosis without myelopathy or radiculopathy, lumbar region (principal); G89.29 Other chronic pain; M51.36 Other intervertebral disc degeneration, lumbar region
CPT/HCPCS: 64493; 64494 ×2; 99152; J2250; J3010; J2795

== ENCOUNTER → 2024-04-02 | Outpatient (CLI) | payer MEDICARE ==
[2024-04-02 14:27] VITALS: BP 102/56; PULSE 84; RESP 16; TEMP 97.6
--- NOTE | 2024-04-02 14:59 | P.PAINPG ---
PQRS Measure Charge Sheet Comment: HISTORY OF PRESENT ILLNESS: A 69 yr old male w at side presents today w severe and chronic LBP x 1 yr secondary to DDD, spondylosis and facet arthropathy without myelopathy for evaluation s/p BL MBB L2-L3/ L3-L4 #1. Pt states he experienced 90 % pain relief x 24 hrs s/p procedure. Pt states pain level is provoked at 6 /10 in intensity, constant, localized in the lower lumbar spine, predominantly axial, sharp in character without shooting pain. Pain is provoked by standing for periods > 15 min Pain is alleviated by PT x 6 wks in Fall 2021, physician guided home exercise regimen daily since Fall 2021, massage therapy years ago, heat, medications, topical, repositioning and rest. Pt has lost 40 lbs over the last few years due to physical activity. Oswestry axial pain score at 24. Interventional procedures include BL RFA L2-L5, BL RFA L3-L5 (Dec 2023), BL MBB L2-L3/ L3-L4 x1 Medications include Voltaren gel, Fish Oil REVIEW OF ORGAN SYSTEMS: CONSTITUTIONAL: No fevers or chills. No recent weight loss. NEUROLOGICAL: + numbness and tingling along the distal extremities. No seizure disorders or headaches. MUSCULOSKELETAL: + pain PSYCHIATRIC: Denies current depression or suicidal thoughts. Physical Examinations : Constitutional : Cooperative , not in acute distress . Neurologic : Cranial nerve II to XII intact. No focal neurological deficits. Psychiatric : alert & oriented x 3. Matching mood & appropriate affect. Judgment & insight intact. Musculoskeletal : Cervical Spine Motor strength in the deltoid and biceps: Normal right side. Normal Left side Motor strength biceps and the wrist extensors: Normal right side . Normal left side Motor strength in the triceps muscle: Normal right side. Normal left side Deep tendon reflexes: Normal at the biceps. Normal at Brachioradialis. Normal at triceps Vertebral body tenderness to deep palpation over Cervical facet loading test: positive bilaterally Spurling test: positive bilaterally Neck distraction test: positive bilaterally Esthela sign: positive bilaterally Lumbar spine Motor strength lower extremities ,thigh and legs 5/5 Right side , 5/5 Left side Deep tendon reflexes : Normal Knee Jerk. Normal Ankle Jerk Vertebral body tenderness over [place] Test positive Lumbar facet Loading Test: positive Right / positive Left L2-L3, L3-L4 Range of motion of the lumbar spine Flexion 30 degrees, extension 10 degrees Straight Leg Raise test: Left/ Right positive at degree Yady test: positive right / positive left. Severe tenderness over the Sacroiliac joint on the Right / Left sides Gaenslen test: positive bilaterally Seated flexion test: positive bilaterally. Sacral spine : Severe tenderness over the Sacroiliac joint: right side / left side Range of motion: Flexion of the lumbar spine <60 degrees Range of motion: Extension of the lumbar spine <20 degrees Gaenslen's Test positive Yady test: positive right side / left side Thigh Thrust Test Sacral Thrust Test Imaging: MRI noncontrast of the lumbar spine from 07/01/2015 reviewed Lumbar x ray of the lumbar spine from 12/09/23 reviewed MRI non contrast of the lumbar spine from 12/19/23 reviewed. Assessment/ Plan : Lumbar DDD Recommendation of BL RFA L2-L3, L3-L4. Exhibited optimal pain relief w prior BL MBBs of the L2-L3/ L3-L4. Risks, benefits of procedure discussed and pt verbalized understanding. Minimal anesthesia including Versed and Fentanyl if clinically indicated. Protocol for discontinuation/ continuation of medications harpreet procedure discussed. All questions answered. I have spent greater than 30 minutes on patient care today. Dr Gómez was available by phone for the evaluation of this patient. The time was used to review the medical records including relevant urine studies and Prescription history (MAPs), review of the available imaging, evaluation and examination of the patient, coordination of care with the medical staff and if applicable referring physicians, as well as creation of the medical record - Pain Location Upper Back Pharmacological Interventions: Block PQRS Narrative: Smoking Status Former smoker Hx Alcohol Use (MH) Yes: OCCASIONAL Home Medications: Ambulatory Orders Cyclobenzaprine [Flexeril] 10 mg PO HS 07/18/15 Hydrocodone/Acetaminophen [[place] 7.5-325] 1 tab PO BID PRN 08/02/15 Lisinopril-Hctz 20-25 mg [Zestoretic 20-25] 1 tab PO QAM 08/02/15 Metoprolol Succinate [Toprol XL] 25 mg PO BID 08/02/15 Omeprazole 40 mg PO AC-BRKFST 08/02/15 amLODIPine [Norvasc] 5 mg PO QAM 08/02/15 traZODone HCL [Desyrel] 50 mg PO HS 08/03/15 Cholecalciferol [Vitamin D3] 2,000 unit PO DAILY 09/30/15 Atorvastatin [Lipitor] 20 mg PO HS 08/17/19 [place]-3 Acid Ethyl Esters [Lovaza] 4 gm PO DAILY 08/17/19 ALPRAZolam [Xanax] 0.5 mg PO DAILY PRN 08/24/19 allopurinoL [Zyloprim] 300 mg PO DAILY 08/24/19 Unk Tumeric 1 tab PO DAILY 01/07/24 Controlled Substance Measures - Controlled Substance Measures Is patient prescribed a controlled substance at discharge?: No
== END ==
LOC: PNWHC3 14:01
PROVIDERS: ATTEND Specialist
DX: M51.36 Other intervertebral disc degeneration, lumbar region (principal); M47.816 Spondylosis without myelopathy or radiculopathy, lumbar region; Z87.891 Personal history of nicotine dependence
CPT/HCPCS: 99211

== ENCOUNTER 2024-04-14 09:17 | Day surgery (SDC) | payer MEDICARE ==
[2024-04-10 14:16] VITALS: BMI 25.7
[2024-04-14 10:48] VITALS: RESP 16; TEMP 96
[2024-04-14] MEDS: LACTATED RINGERS 1,000 ML IV SCH (10:53)
[2024-04-14] MEDS: IV FLUID CONTINUATION 1,000 ML IV ONE ×2 (10:58→12:05)
[2024-04-14] MEDS ORDERED: fentaNYL (PF) 50 MCG/ML 2 ML AMP ONE (12:12)
[2024-04-14] MEDS ORDERED: MIDAZOLAM 2 MG/2 ML VIAL ONE (12:12)
[2024-04-14] MEDS ORDERED: ROPIVACAINE 5MG/ML 20ML VIAL ONE (12:12)
--- NOTE | 2024-04-14 12:21 | P.PCN ---
Date of Procedure: 04/14/24 Description of Procedure: Procedure: BILATERAL L2-L3 L3-L4 #2 Diagnosis: Lumbar spondylosis without myelopathy ANESTHESIA: Patient re-evaluated immediately prior to sedation Medication Administered by: Nurse Sedation Type: Moderate sedationusing Versed and fentanyl. Fentanyl as requested by the patient Sedation Supervision start time: 1211 Sedation Supervision end time: 1221 EBL: Minimal Imaging: Fluoroscopy was used, images where saved to the medical record The patient was seen and examined in the PO. Procedure risks and benefits were fully reviewed with the patient. The patient understands this is diagnostic if local only is used, as will be the case today. The goal of the procedure is to inject medication onto the medial branch or small nerves that innervate the facet joints. In this way, we can hopefully identify which of these joints, if any, may be contributing to their pain. Informed consent for procedure was obtained. The patient was taken into the office fluoroscopy procedure room and placed prone on the table. A pillow was placed under the abdomen to reduce lumbar lordosis. Vital signs were closely monitored during the procedure. The skin over the area was prepped with Betadine X 3 and draped in usual sterile manner. Sterile technique was observed throughout procedure. Under biplanar fluoroscopic guidance, the target injection area of the L2, L3, L4 A 25 gauge 3 1/2 inch spinal needle was then placed at the most medial and superior aspect of the transverse process near the "eye of the Tej dog". Aspiration for blood was negative. 1 cc of 0.5% Ropivacaine was injected into the targeted areas separately. [place] were withdrawn intact. No complications were noted during the procedure. The patient tolerated the procedure well. The patient was placed in supine position and transferred to the recovery area for observation and remained stable until discharged home. Home discharge instructions were given to the patient by the staff. The patient will schedule a follow up as directed.
[2024-04-14] MEDS: IV FLUID CONTINUATION 800 ML IV ONE (12:27)
--- NOTE | 2024-04-14 12:30 | FL ---
EXAMINATION TYPE: FL guided pain mgmt statistic DATE OF EXAM: 04/14/2024 HISTORY: Fluoroscopy time Total dose area product (DAP) in uGy*m?, mGy*cm? (or similar): 0.94802. IMPRESSION: 1. Fluoroscopy time.
[2024-04-14 12:47] VITALS: BP 107/57; PULSE 74
== END 2024-04-14 13:07 | disposition home or self-care (01) ==
LOC: ORPAIN 09:17
PROVIDERS: ATTEND Hospitalist
DX: M47.816 Spondylosis without myelopathy or radiculopathy, lumbar region (principal)
CPT/HCPCS: 64493; 64494 ×2; 99152; J2250; J3010; J2795

== ENCOUNTER → 2024-04-30 | Outpatient (CLI) | payer MEDICARE ==
--- NOTE | 2024-05-21 15:01 | P.PAINPG ---
PQRS Measure Charge Sheet Comment: HISTORY OF PRESENT ILLNESS: A 69 yr old male w at side presents today w severe and chronic LBP x 1 yr secondary to radiculopathy, spondylosis and facet arthropathy without myelopathy for evaluation s/p BL MBB L2-L3/ L3-L4 #2. Pt states he experienced 80 % pain relief x 1 wk s/p procedure. Pt states pain level is provoked at 6 /10 in intensity, constant, localized in the lower lumbar spine, predominantly axial, sharp in character without shooting pain. Pain is provoked by standing for periods > 15 min Pain is alleviated by PT x 6 wks in Fall 2021, physician guided home exercise regimen daily since Fall 2021, massage therapy years ago, heat, medications, topical, repositioning and rest. Pt has lost 40 lbs over the last few years due to physical activity. Interventional procedures include BL RFA L2-L5, BL RFA L3-L5 (Dec 2023), BL MBB L2-L3/ L3-L4 x2 Medications include Voltaren gel, Fish Oil REVIEW OF ORGAN SYSTEMS: CONSTITUTIONAL: No fevers or chills. No recent weight loss. NEUROLOGICAL: + numbness and tingling along the distal extremities. No seizure disorders or headaches. MUSCULOSKELETAL: + pain PSYCHIATRIC: Denies current depression or suicidal thoughts. Physical Examinations : Constitutional : Cooperative , not in acute distress . Neurologic : Cranial nerve II to XII intact. No focal neurological deficits. Psychiatric : alert & oriented x 3. Matching mood & appropriate affect. Judgment & insight intact. Musculoskeletal : Cervical Spine Motor strength in the deltoid and biceps: Normal right side. Normal Left side Motor strength biceps and the wrist extensors: Normal right side . Normal left side Motor strength in the triceps muscle: Normal right side. Normal left side Deep tendon reflexes: Normal at the biceps. Normal at Brachioradialis. Normal at triceps Vertebral body tenderness to deep palpation over Cervical facet loading test: positive bilaterally Spurling test: positive bilaterally Neck distraction test: positive bilaterally Esthela sign: positive bilaterally Lumbar spine Motor strength lower extremities ,thigh and legs 5/5 Right side , 5/5 Left side Deep tendon reflexes : Normal Knee Jerk. Normal Ankle Jerk Vertebral body tenderness over Lake Test positive Lumbar facet Loading Test: positive Right / positive Left L2-L3, L3-L4 Range of motion of the lumbar spine Flexion 30 degrees, extension 10 degrees Straight Leg Raise test: Left/ Right positive at degree Yady test: positive right / positive left. Severe tenderness over the Sacroiliac joint on the Right / Left sides Gaenslen test: positive bilaterally Seated flexion test: positive bilaterally. Sacral spine : Severe tenderness over the Sacroiliac joint: right side / left side Range of motion: Flexion of the lumbar spine <60 degrees Range of motion: Extension of the lumbar spine <20 degrees Gaenslen's Test positive Yady test: positive right side / left side Thigh Thrust Test Sacral Thrust Test Imaging: MRI noncontrast of the lumbar spine from 07/01/2015 reviewed Lumbar x ray of the lumbar spine from 12/09/23 reviewed MRI non contrast of the lumbar spine from 12/19/23 reviewed. Assessment/ Plan : Lumbar radiculopathy Recommendation of BL RFA L2-L3, L3-L4. Exhibited optimal pain relief w prior BL MBBs of the L2-L3/ L3-L4. Risks, benefits of procedure discussed and pt verbalized understanding. Minimal anesthesia including Versed and Fentanyl if clinically indicated. Protocol for discontinuation/ continuation of medications harpreet procedure discussed. All questions answered. I have spent greater than 30 minutes on patient care today. Dr Gómez was available by phone for the evaluation of this patient. The time was used to review the medical records including relevant urine studies and Prescription history (MAPs), review of the available imaging, evaluation and examination of the patient, coordination of care with the medical staff and if applicable referring physicians, as well as creation of the medical record PQRS Narrative: Smoking Status Former smoker Hx Alcohol Use (MH) Yes: OCCASIONAL Home Medications: Ambulatory Orders Cyclobenzaprine [Flexeril] 10 mg PO HS 07/18/15 Hydrocodone/Acetaminophen [[place] 7.5-325] 1 tab PO BID PRN 08/02/15 Lisinopril-Hctz 20-25 mg [Zestoretic 20-25] 1 tab PO QAM 08/02/15 Metoprolol Succinate [Toprol XL] 25 mg PO BID 08/02/15 Omeprazole 40 mg PO AC-BRKFST 08/02/15 amLODIPine [Norvasc] 5 mg PO QAM 08/02/15 traZODone HCL [Desyrel] 50 mg PO HS 08/03/15 Cholecalciferol [Vitamin D3] 2,000 unit PO DAILY 09/30/15 Atorvastatin [Lipitor] 20 mg PO HS 08/17/19 [place]-3 Acid Ethyl Esters [Lovaza] 4 gm PO DAILY 08/17/19 ALPRAZolam [Xanax] 0.5 mg PO DAILY PRN 08/24/19 allopurinoL [Zyloprim] 300 mg PO DAILY 08/24/19 Turmeric Root Extract [Turmeric] 500 mg PO DAILY 04/10/24 Controlled Substance Measures - Controlled Substance Measures Is patient prescribed a controlled substance at discharge?: No
== END ==
LOC: PNWHC3 12:00
PROVIDERS: ATTEND Specialist
DX: M47.816 Spondylosis without myelopathy or radiculopathy, lumbar region
CPT/HCPCS: 99211

== ENCOUNTER 2024-06-02 10:49 | Day surgery (SDC) | payer MEDICARE ==
[2024-06-01 10:14] VITALS: BMI 25.7
[2024-06-02 12:31] VITALS: TEMP 97.3
[2024-06-02] MEDS: LACTATED RINGERS 1,000 ML IV SCH (12:36)
[2024-06-02] MEDS: IV FLUID CONTINUATION 1,000 ML IV ONE ×2 (12:36→14:19)
[2024-06-02] MEDS ORDERED: ROPIVACAINE 5MG/ML 20ML VIAL ONE (13:29)
[2024-06-02] MEDS ORDERED: MIDAZOLAM 2 MG/2 ML VIAL ONE (13:29)
[2024-06-02] MEDS ORDERED: fentaNYL (PF) 50 MCG/ML 2 ML AMP ONE (13:29)
[2024-06-02 14:18] VITALS: RESP 16
--- NOTE | 2024-06-02 14:29 | P.PCN ---
Description of Procedure: Preprocedure diagnosis. 1. Lumbar spondylosis with facet joint arthropathy without myelopathy. 2. Lumbar degenerative disc disease. Procedure diagnosis. 1. Lumbar spondylosis with facet joint arthropathy without myelopathy. Space 2. Lumbar degenerative disc disease. Procedure.Bilateral radiofrequency thermocoagulation L1, L2 and L3 medial branch, with fluoroscopic guidance (fluoroscopy images are available in the radiology department) (to Denervate the facet joint at bilateral L2-3 and L3-4 levels) Anesthesia. Moderate sedation with intravenous Versed 4 mg and fentanyl 150 g and local infiltration with Lidocaine. Continuous pulse OX,BP,EKG and verbal communication was maintained with patient. Time. EBL minimal. Procedure indication. The patient with low back pain secondary to lumbar facet arthropathy who he had more than 50% relief of her pain with previous diagnostic lumbar medial branch block with local anesthetics.The patient was seen and identified in the preoperative area. Risks: Benefits, complications, including but not limited to risk of infection, bleeding, ALLERGIC reaction to the medications and no complete pain relief and alternatives were discussed with the patient, the patient admitted to proceed with the procedure and signed the consent. Procedure description/technique. Patient was taken to the OR and timeout was completed. The patient was placed in prone position on the procedure table. The lumbar area was prepped and draped in the usual sterile fashion. After injecting 5 ml of 1% Lidocaine subcutaneously,using AP and then oblique, lateral view of fluoroscopy, 18-gauge 100 mm radiofrequency cannula with a 10 mm active tip was advanced and guided by fluoroscopy at the junction of supirior articular process with RIGHT transverse process of L2,L3&L4. Each site then underwent positive sensory testing with 50 Hz and 0-1 V and negative motor testing at 2.5 Hz and 0-3 V with local stimulation but no radicular symptoms down the leg. Thereafter each sites underwent radiofrequency thermocoagulation at 80C for 90 seconds after injecting 1 mL of preservative-free 0.5% ropivacaine. Repeat radiofrequency ablation was done at each points after rotating the needle 180 with same setting. This same procedure was repeated twice on the LEFT side at the junction of superior articular process with transverse process of L2,L3, L4 with the same settings after positive sensory,negative motor stimulation and infiltration of 1.0 ml 5% Ropivacaine at each site . RF needles were taken out. At the end of the procedure the skin was cleansed and Band-Aids were applied. Disposition patient tolerated the procedure well. No complication. She was placed in supine position and transferred to the recovery area in stable condition for observation and was discharged home from recovery room after meeting discharge criteria. Discharge instructions given to the patient by the staff. The patient were examined prior to discharge the patient will schedule a follow-up in the clinic in 2-4 weeks.
[2024-06-02 14:31] VITALS: BP 121/76; PULSE 81
--- NOTE | 2024-06-25 10:36 | FL ---
EXAMINATION TYPE: FL guided pain mgmt statistic DATE OF EXAM: 06/02/2024 2:15 PM COMPARISON: Pre Operative Images if available both CT/MRI or plain film CLINICAL INDICATION: Male, 69 years old with history of RF LUMBAR; TECHNIQUE: FL guided pain mgmt statistic, multiple fluoroscopic images provided for procedure. Total fluoroscopy time: 55.4 seconds Total submitted images to PACS: 5 DAP: 0.47883 mGym2 Gycm2 uGym2 cGycm2 or equivalent. FINDINGS: Fluoroscopic images during injection for pain management demonstrate multilevel degeneration changes throughout the spine. No evidence for fracture. No acute process identified. IMPRESSION: 1. No evidence for intraoperative complication. 2. Please see the operative/procedural note for further details. [facility], , 06/25/2024 10:33 AM
== END 2024-06-02 14:55 | disposition home or self-care (01) ==
LOC: ORPAIN 10:49
PROVIDERS: ATTEND Pain Medicine Interventional Pain Medicine
DX: M47.816 Spondylosis without myelopathy or radiculopathy, lumbar region (principal); M51.36 Other intervertebral disc degeneration, lumbar region
CPT/HCPCS: 99152; 99153

== ENCOUNTER → 2024-07-01 | Outpatient (CLI) | payer MEDICARE ==
[2024-07-01 14:48] VITALS: BP 115/71; PULSE 77; RESP 16; TEMP 97.1
--- NOTE | 2024-07-01 14:53 | P.PAINPG ---
PQRS Measure Charge Sheet Comment: HISTORY OF PRESENT ILLNESS: A 69 yr old male w at side presents today w severe and chronic LBP x 1 yr secondary to radiculopathy, spondylosis and facet arthropathy without myelopathy for medication refils. Pt still finds substantial pain relief w BL RFA L4-L5/ L5-S1 from Dec 2023. Pt states pain level is provoked at 6 /10 in intensity, constant, localized in the lower lumbar spine, predominantly axial, sharp in character without shooting pain. Pain is provoked by standing for periods > 15 min Pain is alleviated by PT x 6 wks in Fall 2021, physician guided home exercise regimen daily since Fall 2021, massage therapy years ago, heat, medications, topical, repositioning and rest. Pt has lost 40 lbs over the last few years due to physical activity. Interventional procedures include BL RFA L2-L5, BL RFA L3-L5 (Dec 2023), BL RFA L2-L3/ L3-L4 x2 (Apr 2024) Medications include Voltaren gel, Fish Oil REVIEW OF ORGAN SYSTEMS: CONSTITUTIONAL: No fevers or chills. No recent weight loss. NEUROLOGICAL: + numbness and tingling along the distal extremities. No seizure disorders or headaches. MUSCULOSKELETAL: + pain PSYCHIATRIC: Denies current depression or suicidal thoughts. Physical Examinations : Constitutional : Cooperative , not in acute distress . Neurologic : Cranial nerve II to XII intact. No focal neurological deficits. Psychiatric : alert & oriented x 3. Matching mood & appropriate affect. Judgment & insight intact. Musculoskeletal : Cervical Spine Motor strength in the deltoid and biceps: Normal right side. Normal Left side Motor strength biceps and the wrist extensors: Normal right side . Normal left side Motor strength in the triceps muscle: Normal right side. Normal left side Deep tendon reflexes: Normal at the biceps. Normal at Brachioradialis. Normal at triceps Vertebral body tenderness to deep palpation over Cervical facet loading test: positive bilaterally Spurling test: positive bilaterally Neck distraction test: positive bilaterally Esthela sign: positive bilaterally Lumbar spine Motor strength lower extremities ,thigh and legs 5/5 Right side , 5/5 Left side Deep tendon reflexes : Normal Knee Jerk. Normal Ankle Jerk Vertebral body tenderness over [place] Test positive Lumbar facet Loading Test: positive Right / positive Left Range of motion of the lumbar spine Flexion 30 degrees, extension 10 degrees Straight Leg Raise test: Left/ Right positive at degree Yady test: positive right / positive left. Severe tenderness over the Sacroiliac joint on the Right / Left sides Gaenslen test: positive bilaterally Seated flexion test: positive bilaterally. Sacral spine : Severe tenderness over the Sacroiliac joint: right side / left side Range of motion: Flexion of the lumbar spine <60 degrees Range of motion: Extension of the lumbar spine <20 degrees Gaenslen's Test positive Yady test: positive right side / left side Thigh Thrust Test Sacral Thrust Test Imaging: MRI noncontrast of the lumbar spine from 07/01/2015 reviewed Lumbar x ray of the lumbar spine from 12/09/23 reviewed MRI non contrast of the lumbar spine from 12/19/23 reviewed. Assessment/ Plan : Lumbar radiculopathy Recommendation of medication management. Percocet 7.5/325mg #60 w 1 RF. Opiate/ narcotic agreement signed 07/01/24. Use, side effects, adverse reactions, safe storage discussed. All questions answered. I have spent greater than 30 minutes on patient care today. Dr Gómez was available by phone for the evaluation of this patient. The time was used to review the medical records including relevant urine studies and Prescription history (MAPs), review of the available imaging, evaluation and examination of the patient, coordination of care with the medical staff and if applicable re [facility] physicians, as well as creation of the medical record PQRS Narrative: Smoking Status Former smoker Hx Alcohol Use (MH) Yes: OCCASIONAL Home Medications: Ambulatory Orders Cyclobenzaprine [Flexeril] 10 mg PO HS 07/18/15 Lisinopril-Hctz 20-25 mg [Zestoretic 20-25] 1 tab PO QAM 08/02/15 Metoprolol Succinate [Toprol XL] 25 mg PO BID 08/02/15 Omeprazole 40 mg PO AC-BRKFST 08/02/15 amLODIPine [Norvasc] 5 mg PO QAM 08/02/15 traZODone HCL [Desyrel] 50 mg PO HS 08/03/15 Cholecalciferol [Vitamin D3] 2,000 unit PO DAILY 09/30/15 Atorvastatin [Lipitor] 20 mg PO HS 08/17/19 [place]-3 Acid Ethyl Esters [Lovaza] 4 gm PO DAILY 08/17/19 ALPRAZolam [Xanax] 0.5 mg PO DAILY PRN 08/24/19 allopurinoL [Zyloprim] 300 mg PO DAILY 08/24/19 Turmeric Root Extract [Turmeric] 500 mg PO DAILY 04/10/24 oxyCODONE HCL/ACETAMINOPHEN [Percocet 7.5-325 mg] 1 tab PO TID PRN 30 Days #90 tab 07/01/24 oxyCODONE HCL/ACETAMINOPHEN [Percocet 7.5-325 mg] 1 tab PO TID PRN 30 Days #90 tab 07/01/24 Controlled Substance Measures - Controlled Substance Measures Is patient prescribed a controlled substance at discharge?: Yes When asked, does pt state using other controlled substances?: No If prescribed controlled substance>3 days was MAPS reviewed?: Yes If Rx opioid, was Start Talking consent form obtained?: Yes Was information provided regarding opioid addiction?: Yes
== END ==
LOC: PNWHC3 14:05
PROVIDERS: ATTEND Specialist
DX: M47.816 Spondylosis without myelopathy or radiculopathy, lumbar region
CPT/HCPCS: 99211